=== PATIENT | male | born 1970 | race Caucasian/White ===

== ENCOUNTER 2017-05-21 12:54 | Emergency (ER) | payer MEDICAID, OTHER ==
[~2017-05-21] VITALS: Ht 180.3 cm; Wt 72.0 kg
[2017-05-21 13:02] VITALS: BP 125/69; PULSE 100; RESP 18; TEMP 98.4; O2SAT 96
[2017-05-21] MEDS ORDERED: ULTR50TA5 PO (13:23)
[2017-05-21] MEDS ORDERED: CLIN1CAP6 PO (13:23)
[2017-05-21] MEDS ORDERED: IBUP800T23 PO (13:23)
--- NOTE | 2017-05-21 13:23 | PD ---
HPI . Left jaw pain Chief Complaint: Oral / Dental Pain or Problem Time Seen by Provider: 13:09 Travel History International Travel<30 days: No Contact w/Intl Traveler<30days: No Traveled to known affect area: No History of Present Illness HPI This patient presents with a 1 day history of left jaw pain. He rates his pain 7/10. He is also complaining with dental issues. He denies associated fever. He has not taken anything for it prior to presentation. He does not know of any modifying factors. PFSH Past Medical History Diabetes: No Schizophrenia: Yes Tetanus Vaccination: Unknown Past Surgical History Surgical History: No Previous Surgery Social History Alcohol Use: No Tobacco Use: Yes (1 ppd) Substance Use: No Allergies-Medications (Allergen,Severity, Reaction): Coded Allergies: No Known Allergies (Unverified , 05/21/17) Review of Systems Except as stated in HPI: all other systems reviewed are Neg General / Constitutional: No: Fever, Chills HENT: Positive: Dental Difficulties, Other (left jaw swelling) Hematologic/Lymphatic: No: Lymph Node Enlargement Physical Exam Narrative GENERAL: Awake and alert. SKIN: Warm and dry. No redness or warmth. HEAD: Normocephalic/atraumatic. EYES: Pupils are equal. Extraocular movements are intact. ENT: Swelling of the left jaw. Tenderness to percussion of his left third mandibular molar. No gingival swelling. NECK: No cervical lymphadenopathy. CARDIOVASCULAR: Regular rate. RESPIRATORY: Nonlabored respirations. MUSCULOSKELETAL: Atraumatic. NEUROLOGICAL: Nonfocal. PSYCHIATRIC: Appropriate mood, flat affect. Deliberate speech. Data Data Last Documented VS Vital Signs Date Time Temp Pulse Resp B/P (MAP) Pulse Ox O2 Delivery O2 Flow Rate FiO2 05/21/17 13:02 98.4 100 18 125/69 (87) 96 MDM Medical Decision Making Medical Screen Exam Complete: Yes Emergency Medical Condition: Yes Differential Diagnosis Differential diagnosis of facial swelling includes but is not limited to dental abscess, cellulitis, angioedema, facial trauma. Narrative Course This patient presents with spontaneous left jaw swelling. He has associated tenderness to percussion of his left mandibular third molar. He has a dental abscess. He will be discharged on clindamycin, ibuprofen and Ultram. Diagnosis Primary Impression: Dental abscess Patient Instructions: Dental Abscess (ED), General Instructions Med/Other Pt SpecificInfo: Prescription(s) given Scripts Tramadol (Ultram) 50 Mg Tab 50 MG PO Q4H Y for PAIN, #12 TAB 0 Refills Prov: Debby Wheat MD 05/21/17 Ibuprofen (Ibuprofen) 800 Mg Tab 800 MG PO Q8H Y for Pain/Inflammation, #60 TAB 0 Refills Prov: Dbeby Wehat MD 05/21/17 Clindamycin (Clindamycin) 300 Mg Cap 600 MG PO Q8H for Infection for 10 Days, #60 CAP 0 Refills Prov: Debby Wheat MD 05/21/17 Disposition: 01 DISCHARGE HOME Condition: Stable Debby Wheat MD May 21, 2017 13:23
== END 2017-05-21 13:44 | disposition home or self-care (01) ==
LOC: NEPD 12:54
DX: K04.7 Periapical abscess without sinus (principal); F20.9 Schizophrenia, unspecified; F17.200 Nicotine dependence, unspecified, uncomplicated
CPT/HCPCS: 99284